=== PATIENT | female | born 1950 | race Caucasian/White ===

== ENCOUNTER → 2023-07-27 10:25 | Outpatient (REF) | payer MEDICARE, OTHER, SELFPAY | LOC: HWWDC 10:25 | PROVIDERS: ATTENDING PHYSICIAN Obstetrics & Gynecology; FAMILY PHYSICIAN Nurse Practitioner Family | DX: Z12.31 Encounter for screening mammogram for malignant neoplasm of breast (principal) | CPT/HCPCS: 77063; 77067 ==

== ENCOUNTER 2023-09-17 08:50 | Emergency (ER) | payer MEDICARE, OTHER, SELFPAY ==
[2023-09-17 08:56] VITALS: BP 136/71
--- NOTE | 2023-09-17 09:24 | ED.MUSCINJ ---
HPI-Injury
General
Chief Complaint: Musculo-Skeletal Complaint
Source: patient
Exam Limitations: none
Time Seen by Provider: 09/17/23 09:09
Nursing documentation reviewed up to this point in time: agreed with
Travel History
Have you had any contact with someone who has COVID-19?: No
Do you have any symptoms of coronavirus? Fever > 100 degrees, chills, cough, shortness of breath, sore throat, loss of taste or smell, muscle aches, or headache?: No
History of Present Illness-Injury
Initial Injury comments:
Patient is a 73-year-old female presents to the ER for evaluation of right foot pain. Patient reports she twisted her right foot getting out of an [employer] last night. She is able to bear weight with difficulty. She did ice last night. She denies
any other injuries. She denies any actual ankle pain. She did not hit her head.
Review of Systems
Review of Systems
Allergies reviewed?: Yes
All Other Systems: ROS reviewed and negative except as documented in HPI and ROS
Constitutional: Reports no symptoms
Musculoskeletal: Reports other (right lateral foot pain )
Skin: Reports no symptoms
Psychiatric: Reports no symptoms
Phy Exam
General Physical Exam
General Presentation: no apparent distress
General age: appears stated age
General Skin: warm and dry
General Habitus: normal
General Mental: alert
General Hydration: appears well hydrated
Neurological Exam
Neurological Exam: alert and oriented x3
Musculoskeletal Exam
Musculoskeletal Exam: other (Right lower extremity strong pulses tender to the proximal fifth metatarsal area no bony medial or lateral ankle tenderness no proximal tib-fib tenderness no abrasions or laceration)
Skin Exam
Skin Exam: normal color and warm/dry
Psychiatric Exam
Psychiatric Exam: normal mood/affect
Injury Course
Orders/Labs/Results
Orders:
Orders
09/17/23 08:57
Foot, Right 3 View [CR Foot - Right Min 3 Views] Urgent
Comment:
Reason For Exam: injury last night
09/17/23 09:30
boot [Ortho Boot Right- Treatment] ONCE
Short or tall?: Short
MDM/Problems Addressed
Differential Diagnosis Includes:
Not limited to sprain strain contusion versus fracture
MDM/Problems Addressed:
Patient with fracture to proximal fifth metatarsal will place in a boot however discussed with patient the importance however of nonweightbearing for the next several days ice elevation ibuprofen outpatient Ortho follow-up
*Critical Care Note
Total Time (30-74mins, 75-104mins- exclusive of procedures): Not Applicable
ED Attending Note
-
Portions of this chart may have been created with voice recognition software.� Occasional wrong word or��sound alike� substitutions may have occurred due to the inherent limitations of voice recognition software.
Discharge Plan
Departure
Patient Disposition: Home (Routine Discharge)
Date of Disposition: 09/17/23
Time of Disposition: 09:30
Patient with high blood pressure during this ER visit?: Yes
Condition: Fair
Covid-19: Not Applicable
Discharge Problem:
Foot fracture, right
Instructions: Foot Fracture (DC), Using Cold for Pain
Referrals:
Kristal Ibrahim CRNP [Family Provider] -
Maribel Youngblood I., DO [Active] -
Activity Restrictions/Additional Instructions:
Ice and elevate foot as much as possible.
Ibuprofen as directed every 8 hrs with food.
Wear boot for support . do not walk on foot without boot.
Call ortho tomorrow morning for appointment in the next 2-3 days. Return if any worsening of symptoms.
Interventions
Interventions:
*Risk Screen - Suicide Last Done: 09/17/23 09:30
*General Assessment Last Done: 09/17/23 09:30
*Neglect/Abuse Screening Last Done: 09/17/23 09:30
*Nursing Disposition Last Done: 09/17/23 09:53
ED-Musculoskeletal Assessment Last Done: 09/17/23 09:30
Discharge Date and Time
Discharge Date/Time: 09/17/23 09:56
Print Language: TURKISH
[2023-09-17 09:53] VITALS: BP 124/71
== END 2023-09-17 09:56 | disposition home or self-care (01) ==
LOC: EMR 08:50
PROVIDERS: EMERGENCY PHYSICIAN Emergency Medicine; FAMILY PHYSICIAN Nurse Practitioner Family
DX: S92.354A Nondisplaced fracture of fifth metatarsal bone, right foot, initial encounter for closed fracture (principal); V48.4XXA Person boarding or alighting a car injured in noncollision transport accident, initial encounter; X50.1XXA Overexertion from prolonged static or awkward postures, initial encounter; R03.0 Elevated blood-pressure reading, without diagnosis of hypertension; E11.9 Type 2 diabetes mellitus without complications; E03.9 Hypothyroidism, unspecified; E78.5 Hyperlipidemia, unspecified; Z85.3 Personal history of malignant neoplasm of breast; Z79.84 Long term (current) use of oral hypoglycemic drugs
CPT/HCPCS: 99283; 29515; 73630

== ENCOUNTER → 2023-09-19 13:59 | Outpatient (REF) | payer MEDICARE, OTHER, SELFPAY | LOC: HWRCS 13:59 | PROVIDERS: ATTENDING PHYSICIAN Internal Medicine Interventional Cardiology; FAMILY PHYSICIAN Nurse Practitioner Family | DX: I10 Essential (primary) hypertension (principal) | CPT/HCPCS: 93306 ==

== ENCOUNTER → 2023-11-24 17:45 | Outpatient (REF) | payer MEDICARE, OTHER, SELFPAY | LOC: PAVMRI 17:45 | PROVIDERS: ATTENDING PHYSICIAN Psychiatry & Neurology Neurology | DX: M54.50 Low back pain, unspecified (principal) | CPT/HCPCS: 72148 ==

== ENCOUNTER → 2024-06-14 14:16 | Outpatient (REF) | payer MEDICARE, OTHER, SELFPAY | LOC: HWRAD 14:16 | PROVIDERS: ATTENDING PHYSICIAN Internal Medicine Endocrinology, Diabetes & Metabolism; FAMILY PHYSICIAN Nurse Practitioner Family | DX: E04.2 Nontoxic multinodular goiter (principal) | CPT/HCPCS: 76536 ==

== ENCOUNTER → 2024-07-29 11:11 | Outpatient (REF) | payer MEDICARE, OTHER, SELFPAY | LOC: HWWDC 11:11 | PROVIDERS: ATTENDING PHYSICIAN Obstetrics & Gynecology; FAMILY PHYSICIAN Nurse Practitioner Family | DX: Z12.31 Encounter for screening mammogram for malignant neoplasm of breast (principal) | CPT/HCPCS: 77063; 77067 ==

== ENCOUNTER → 2024-08-09 09:36 | Outpatient (REF) | payer MEDICARE, OTHER, SELFPAY | LOC: WDC 09:36 | PROVIDERS: ATTENDING PHYSICIAN Obstetrics & Gynecology; FAMILY PHYSICIAN Nurse Practitioner Family | DX: R92.8 Other abnormal and inconclusive findings on diagnostic imaging of breast (principal) | CPT/HCPCS: 76642 ==

== ENCOUNTER → 2024-08-15 07:50 | Outpatient (REF) | payer MEDICARE, OTHER, SELFPAY | LOC: WDC 07:50 | PROVIDERS: ATTENDING PHYSICIAN Obstetrics & Gynecology | DX: N63.12 Unspecified lump in the right breast, upper inner quadrant (principal) | CPT/HCPCS: 88305; 19083; 88341; 88342; 88360; A4648 ==

== ENCOUNTER → 2024-09-03 11:50 | Outpatient (REF) | payer MEDICARE, OTHER, SELFPAY | LOC: WDC 11:50 | PROVIDERS: ATTENDING PHYSICIAN Surgery | DX: C50.411 Malignant neoplasm of upper-outer quadrant of right female breast (principal) | CPT/HCPCS: 38792; 76942; A9541 ==

== ENCOUNTER 2024-09-04 06:11 | Inpatient (IN) | payer MEDICARE, OTHER, SELFPAY ==
[2024-08-29 17:39] LABS: % Basophils 0.6 % (0-2); % Eosinophils 1.9 % (0-6); % Immature Granulocytes 0.3 % (0-0.5); % Lymphocytes 36.9 % (20.5-51.1); % Monocytes 6.3 % (1.7-9.3); Absolute Eosinophils 0.1 10^3/uL (0-0.7); Absolute Lymphocytes 2.6 10^3/uL (1.2-3.4); Absolute Monocytes 0.4 10^3/uL (0.1-0.6); Absolute Neutrophils 3.8 10^3/uL (1.4-6.5); Hematocrit 41.5 % (37.0-47.0); Hemoglobin 14.4 g/dL (12.0-16.0); Mean Corp Hgb Conc. 34.7 g/dL (33.0-37.0); Mean Corpuscular Hgb 31.3 pg (27.0-31.0); Mean Corpuscular Volume 90.2 fL (81.0-99.0); Mean Platelet Volume 10.6 fL (7.4-10.4); Nucleated Red Blood Cells % 0 %; Platelet Count 240 10^3/uL (130-400); Red Cell Dist. Width 12.6 % (11.5-14.5)
[2024-08-29 17:57] LABS: ALT (SGPT) 25 U/L (0-35); AST (SGOT) 23 U/L (14-36); Albumin 5.1 g/dl (3.5-5.0); Alkaline Phosphatase 75 U/L (38-126); Blood Urea Nitrogen 19 mg/dl (7-17); Calcium 10.5 mg/dl (8.4-10.2); Carbon Dioxide 30 mmol/L (22-30); Chloride 99 mmol/L (98-107); Glucose 95 mg/dl (70-99); Potassium 4.5 mmol/L (3.5-5.1); Sodium 140 mmol/L (135-145); Total Bilirubin 1.2 mg/dl (0.2-1.3); Total Protein 8.3 g/dl (6.3-8.2); eGFR > 60.00
[2024-08-30 10:50] LABS: Prealbumin (Transthyretin) 41.5 mg/dl (17.6-36.0)
[2024-08-30 10:59] LABS: Vitamin D, 25-OH*** 31.8 ng/mL (30-80)
[2024-09-04] VITALS (10 sets, daily range): BP systolic 5–171; BP diastolic 61–89; BMI 30.7
[2024-09-04] MEDS: LOVENOX 40 MG SC (07:11)
[2024-09-04] MEDS: TYLENOL 1000 MG PO ×4 (07:11→23:20)
[2024-09-04 07:17] LABS: Glucose - Point of Care 105 mg/dl (70-99)
--- NOTE | 2024-09-04 07:20 | W.SUR.PREOP ---
Pre-Operative Surgical Note
-
I have examined this patient prior to the performance of the scheduled procedure.
The patient's condition is unchanged from the time of the current History and
Physical and the patient is able to undergo the scheduled procedure.
[2024-09-04] MEDS: NORMOSOL-R/PLASMALYTE-A 1000 IV (07:29)
--- NOTE | 2024-09-04 07:34 | PTCARENOTE ---
Per Dr. Esquivel patients R arm can be used for an IV site. BP's yto be done in the calves only. Will monitor patient.
[2024-09-04 08:56] LABS: Glucose - Point of Care 114 mg/dl (70-99)
--- NOTE | 2024-09-04 10:05 | W.IMMPOSTOP ---
Surgical Immed Post Op Note
-
Primary Surgeon: Sierra
Assisting Surgeon: None
Pre-op Diagnosis: Right breast ca
Post-op Diagnosis: Same
Procedure Performed: right mastectomy and sentinel lymph node mapping and biopsy
Anesthesia Type: GET
Specimen / Cultures: Right breast, sentinel nodes
Estimated Blood Loss: 20cc
Complications: None
Operative Findings: None
--- NOTE | 2024-09-04 10:06 | OR.RPT ---
Operative Report
Operative Report
Date of surgery 09/04/24
Pre-Op DX: Right breast ca
Post-Op DX: Right breast ca
Procedure: Right mastectomy, sentinel node mapping and biopsy
Surgeon: Sierra
The patient is a 74-year-old female with image detected right breast carcinoma who presents for right mastectomy and sentinel lymph node mapping and biopsy. The patient had a prior history of left breast carcinoma treated with mastectomy and a TRAM
flap. She had a reduction surgery performed on the right side. On the day prior to the procedure the patient presented to the [facility] where technetium radiotracer was injected into the breast parenchyma. On the day of surgery, she presented
to same-day surgical services. She was prepped and DVT and antibiotic prophylaxis were provided. The patient verified site and procedures. She was taken to the operating room and in the supine position general anesthesia was induced. A Lezama
catheter was inserted using aseptic technique and the right breast was prepped and draped in the usual sterile fashion.
An appropriate timeout was performed by all staff members. A circumareolar incision extending inferiorly in a vertical pattern was made sharply with the blade. Skin flaps were elevated using the PlasmaBlade and a lighted InVuity retractor. Larger
vessels were controlled with 3-0 silk tie or 3-0 silk suture ligature. Dissection was carried down to the chest wall and the breast was taken off the chest wall in a medial to lateral direction. There were some dense adhesions to the chest wall
and areas where the previous reduction tissue was adherent. Time out of body was noted and the specimen was oriented for the pathologist and sent for permanent analysis. Hemostasis was verified. This allowed entry into the axilla where the
neoprobe was used to identify 2 lymph node packets which were excised. Feeding vessels to the nodes were controlled with 3-0 silk tie. The wound was irrigated and suctioned and a moist pack was placed. At this juncture, plastic surgery entered
to begin the reconstructive portion of the procedure.
([id number])
Boss Node Bx Breast Cancer
Boss Node Bx Breast Cancer
Tracer(s) to ID Boss Nodes in Non-Neoadjuvant setting: Radioactive Tracer
Tracer(s) to ID Sentinal Nodes in the Neoadjuvant Setting: N/A
All nodes at end of dye-filled Lymphatic Channel removed: N/A
All Significantly Radioactive Nodes were removed: Yes
All Palpably Suspicious Nodes were Removed: Yes
Bx Proven Pos Nodes Marked Prior to Chemo ID'd & Removed: N/A
--- NOTE | 2024-09-04 11:02 | W.IMMPOSTOP ---
Surgical Immed Post Op Note
-
Primary Surgeon: ADÁN Felix MD
Assisting Surgeon:
Pre-op Diagnosis: Right breast CA
Post-op Diagnosis: Same
Procedure Performed: Right immediate breast reconstruction with tissue marketing team lead, ADM mesh insertion, spy angiography
Anesthesia Type: GA
Specimen / Cultures: Per Dr. Esquivel
Estimated Blood Loss: 5cc
Complications: None
Operative Findings: As expected
--- NOTE | 2024-09-04 11:02 | OR.RPT ---
Operative Report
Operative Report
Date of Surgery: 09/04/24
Surgeon: ADÁN Felix MD
Preoperative Diagnosis: Right breast Cancer
Postoperative Diagnosis: Same
Procedure:
1. Right immediate insertion of tissue card table attendant for breast reconstruction
2. Insertion of ADM mesh, 12x 32cm
3. Spy angiography
Anesthesia: General
Complications: None
Specimens: Per Dr. Esquivel
EBL: 5cc
Store Worker size: 14 cm
Indications for procedure: Patient was referred to me by Dr. Esquivel with a recent diagnosis of breast cancer. She was planned to undergo unilateral mastectomy. We discussed her options for breast reconstruction at length including implant based
and autologous options. The patient opted for immediate reconstruction with tissue expanders. She understands that the final reconstruction will be staged. We also discussed the use of ADM and spy angiography. Risks include reconstructive
failure, capsular contracture, infection, delayed wound healing, mastectomy skin flap necrosis, hematoma, seroma and need for repeat procedure. Patient understood these risks and desired to proceed. Consents were signed accordingly.
Procedure in detail: Patient was identified the preoperative area and the surgical site was confirmed to be the breast. All questions were answered and consents were confirmed. Patient was then sat upright and normal anatomical landmarks were
marked including midline and inframammary fold. Patient was then taken back to the operating room placed supine on the table. She was prepped and draped in the usual sterile fashion using ChloraPrep solution. A Lezama catheter was placed. A
timeout for patient safety was performed was confirmed that bilateral SCDs were in place and preoperative antibiotics administered. The procedure began with Dr. Esquivel first performing the mastectomy. Her op report will be dictated separately.
When I entered the procedure, the mastectomy had been completed. As such I inspected the wound bed of the chest wall and ensured meticulous hemostasis. The base width was measured and appropriate tissue card table attendant was selected. Two 6 x 16 sheets of
Cortiva ADM were soaked in dilute Betadine solution and passed through the skin graft mesher on carrier of 1-1.5. This construct was then draped around the tissue card table attendant in a total anterior coverage technique. The card table attendant ADM construct was then
sutured to the chest wall with a series of 2-0 silk sutures. Pectoralis and intercostal blocks were performed with Marcaine. 2 drains were then placed in the preaxial area line with a long subcutaneous tunnel and sutured in place with 2-0 Prolene
sutures. The wound was irrigated with double antibiotic solution and dilute Betadine. The mastectomy incisions were then closed with a series of 3-0 Vicryl's in the deep subcutaneous tissues followed by 3-0 and 4-0 Monocryl's in the deep dermis
and superficial skin.
Spy angiography was performed after closure to ensure adequate vascularity of the mastectomy flap. This was confirmed. The wounds were dressed accordingly and a supportive bra was placed. The patient was extubated taken to the PACU for further
care. All counts were correct at the end the case was performed out complication.
[2024-09-04 11:19] LABS: Glucose - Point of Care 121 mg/dl (70-99)
[2024-09-04] MEDS: DILAUDID 0.25 MG IV ×2 (11:30→11:46)
[2024-09-04] MEDS: ANCEF 5 IV ×2 (15:10→23:20)
[2024-09-04] MEDS: COLACE 100 MG PO (21:09)
[2024-09-04 21:20] LABS: Glucose - Point of Care 205 mg/dl (70-99)
[2024-09-05 03:08] VITALS: BP 142/62
[2024-09-05] MEDS: TYLENOL 1000 MG PO ×2 (06:42→12:44)
[2024-09-05 07:20] VITALS: BP 154/66
[2024-09-05] MEDS: COLACE 100 MG PO (08:04)
[2024-09-05] MEDS: ANCEF 5 IV (08:05)
--- NOTE | 2024-09-05 09:14 | CM ---
CM met with patient in room. Patient confirmed demographics. Patient lives independently with . Patient had a history of home care many years ago, but is currently not on service. Patient does not have a history of SNF or DME. Patient is
active with her PCP. Patient uses [facility] for medication services.
Patient is agreeable to [facility]. Referral sent to [facility] Admission RN.
PLAN: Home with [facility]
--- NOTE | 2024-09-05 10:00 | W.PN.PLAS ---
Progress Note
Subjective Data
Doing well, denies SOB, pain well controlled
Subjective: Tolerating Regular Diet and Ambulatory
Objective Data
Vital Signs
Temp Pulse Resp BP Pulse Ox
98.1 F 61 16 154/66 96
09/05/24 07:20 09/05/24 07:20 09/05/24 07:20 09/05/24 07:20 09/05/24 07:20
Intake and Output
09/04/24 09/05/24 09/06/24
06:59 06:59 06:59
Intake Total 1560 / 1560
Output Total 920 / 920
Balance 640 / 640
Intake:
Oral fluids 1560 / 1560
Output:
Drain Output (Total) 620 / 620
Right Breast Nahid-Cash A 450 / 450
Right Breast Nahid-Cash B 170 / 170
Urine, Voided 300 / 300
Other:
Number of approximated MODERATE 2
amounts of urine
PEx:
NAD
No increased WOB
Right breast with model builder display in place
Drains serosang with appropriate output
Assessment / Plan
s/p R mstx and immediate model builder display recon
Doing very well
D/C to home with VN
--- NOTE | 2024-09-05 10:02 | W.DCSUMMARY ---
Discharge Summary
Discharge Data
Date of Admission: 09/04/24
Date of Discharge: 09/05/24
-
Pending Results: No
Hospital Course
Routine postoperative course after right mastectomy and immediate riveter automobile brakes reconstruction.
On POD1 she was ambulatory, tolerating a regular diet, pain well controlled on oral medications.
DC to home with VN.
Discharge Plan
-
Patient Disposition: Home (Routine Discharge)
Condition: Good
Referrals:
Kristal Ibrahim CRNP [Family Provider] -
Prescriptions:
New
tramadol 50 mg Tablet
50 mg PO Q6HPRN PRN (Reason: severe pain) 7 Days Qty: 12 0RF
diazepam 5 mg Tablet
5 mg PO TIDPRN PRN (Reason: Muscle Spasms) 7 Days Qty: 21 0RF
gabapentin 300 mg capsule
300 mg PO HS Qty: 30 3RF
cefadroxil 500 mg capsule
500 mg PO BID Qty: 42 0RF
Continued
metformin 500 mg Tablet
500 mg PO DAILY
Rx Instructions:
Takes for insulin resistance
levothyroxine 137 mcg Tablet
137 mcg PO DAILY
atorvastatin 10 mg Tablet
10 mg PO DAILY
ibuprofen 200 mg Capsule
200 mg PO Q6H PRN (Reason: pain)
acetaminophen [Tylenol 8 Hour] 650 mg Tablet Extended Release
1,300 mg PO Q8H PRN (Reason: pain)
triamterene-hydrochlorothiazid 37.5-25 mg Tablet
1 tab PO DAILY
coenzyme Q10 [Co Q-10] 100 mg Capsule
100 mg PO DAILY
cholecalciferol (vitamin D3) [Vitamin D3] 25 mcg (1,000 unit) Tablet
25 mcg PO DAILY
cyanocobalamin (vitamin B-12) 1,000 mcg Capsule
1,000 mcg PO DAILY
docusate sodium 100 mg Tablet
100 mg PO DAILY
Selenimin
Discharge Orders:
Discharge Patient (As Directed); Ordered 09/05/24
Ordered By: Torsten Felix
Discharge Date and Time
Print Language: CHADIAN
[2024-09-05 10:51] LABS: Hematocrit 33.7 % (37.0-47.0); Hemoglobin 11.8 g/dL (12.0-16.0)
--- NOTE | 2024-09-05 10:58 | VNURNOTE ---
Home Health Liaison met with patient at bedside to discuss [facility] nurse/therapy, visits, schedule and homebound status. Patient is agreeable and understands that visits at home will be 2-3 x per week to assess and teach medical and drain management.
[facility] 1-2 days after discharge from .
[facility] referral completed in Care Port.
[2024-09-05 11:05] LABS: Blood Urea Nitrogen 20 mg/dl (7-17); Calcium 9.2 mg/dl (8.4-10.2); Carbon Dioxide 27 mmol/L (22-30); Chloride 95 mmol/L (98-107); Estimated Creatinine Clearance 54 ml/min; Glucose 100 mg/dl (70-99); Potassium 3.8 mmol/L (3.5-5.1); Sodium 131 mmol/L (135-145); eGFR 59.49
[2024-09-05] MEDS: SYNTHROID 137 MCG PO (11:11)
[2024-09-05] MEDS: DYAZIDE 1 CAPSULE PO (11:12)
[2024-09-05] MEDS: GLUCOPHAGE 500 MG PO (11:12)
--- NOTE | 2024-09-05 11:13 | PTOTSP ---
Received order for PT and reviewed chart. Visited pt in her room and she was sitting on EOB. Pt stated she is getting around fine and does not need PT at this time. PT will sign off.
[2024-09-05 11:30] VITALS: BP 132/73
[2024-09-05 15:16] LABS: Hepatitis C Antibody Negative (Negative)
[2024-09-05 15:45] VITALS: BP 150/89
== END 2024-09-05 17:04 | disposition home health service (06) | DRG 581 ==
LOC: 2 SOUTH 06:11
PROVIDERS: ADMITTING PHYSICIAN Surgery; FAMILY PHYSICIAN Nurse Practitioner Family; REFERRING PHYSICIAN Surgery Plastic and Reconstructive Surgery
PROC: 07B50ZX Excision of Right Axillary Lymphatic, Open Approach, Diagnostic (ICD-10-PCS; 2024-09-04)
PROC: 0HTT0ZZ Resection of Right Breast, Open Approach (ICD-10-PCS; 2024-09-04)
PROC: 0HHT0NZ Insertion of Tissue Expander into Right Breast, Open Approach (ICD-10-PCS; 2024-09-04)
DX: C50.411 Malignant neoplasm of upper-outer quadrant of right female breast (principal); Z17.0 Estrogen receptor positive status [ER+]
CPT/HCPCS: 88307; 36415; 38792; 76942; 80048; 80053; 82306; 82962; 84134; 85014; 85018; 85025; 86803; 88342; 93005; A4648; A9541; C1789; Q4100

== ENCOUNTER → 2025-04-21 12:57 | Outpatient (REF) | payer MEDICARE, OTHER, SELFPAY | LOC: HWRAD 12:57 | PROVIDERS: ATTENDING PHYSICIAN Internal Medicine Nephrology; FAMILY PHYSICIAN Family Medicine | DX: R80.8 Other proteinuria (principal) | CPT/HCPCS: 76775 ==